=== PATIENT | male | born 1935 | race Caucasian/White ===

== ENCOUNTER → 2017-12-05 | Outpatient (CLI) | payer OTHER, BC | LOC: BHFA 09:00 | PROVIDERS: ATTEND Internal Medicine Interventional Cardiology | DX: R94.31 Abnormal electrocardiogram [ECG] [EKG] (principal); I42.9 Cardiomyopathy, unspecified; I10 Essential (primary) hypertension | CPT/HCPCS: 78452; 93017; A9500; J2785 ==

== ENCOUNTER → 2017-12-19 | Outpatient (CLI) | payer OTHER, BC | LOC: BHFA 13:15 | PROVIDERS: ATTEND Internal Medicine | DX: R09.89 Other specified symptoms and signs involving the circulatory and respiratory systems (principal); I25.10 Atherosclerotic heart disease of native coronary artery without angina pectoris ==

== ENCOUNTER 2018-01-25 08:54 | Day surgery (SDC) | payer OTHER, BC ==
[2018-01-25] MEDS ORDERED: DIAZEPAM 5 MG TAB PO ONE (08:57)
[2018-01-25] MEDS ORDERED: ASPIRIN EC 325 MG TAB PO ONE ×2 (08:57→09:21)
[2018-01-25] MEDS ORDERED: diphenhydrAMINE 25 MG CAP PO ONE ×2 (08:57→09:21)
[2018-01-25] MEDS ORDERED: NS 1,000 ML IV ONE (08:57)
[2018-01-25] MEDS ORDERED: FAMOTIDINE 20 MG TAB PO ONE (08:57)
--- NOTE | 2018-01-25 09:12 | PDPROPOC ---
Sedation Plan of Care Sedation Plan of Care: vital signs stable, mental status noted, patient educated of risks, benefits, alternatives, patient can tolerate sedation ASA Classification: ASA 2 Planned drugs: fentanyl, midazolam Mallampati Score: Class 2 Mallampati Reference Image: Patient passed 3-3-2 rule?: Yes
--- NOTE | 2018-01-25 09:12 | PDHPUP ---
History & Physical Update H&P update statement: This history and physical update is based on an assessment of the patient which was completed after admission or registration (within 24 hours), but prior to the surgery/procedure. H&P update: H&P reviewed & patient examined, no change in patient's condition since H&P completed
--- NOTE | 2018-01-25 09:19 | CPEKG ---
Heart Rate: 76 RR Interval: 789 P-R Interval: 152 QRSD Interval: 146 QT Interval: 436 QTC Interval: 491 P [place]: 67 QRS [place]: 24 T Wave [place]: 9 EKG Severity - ABNORMAL ECG - EKG Impression: SINUS RHYTHM EKG Impression: RIGHT BUNDLE BRANCH BLOCK EKG Impression: BORDERLINE INFERIOR Q WAVES Electronically Signed By: Aracelis Irvin 25-Jan-2018 11:20:36
[2018-01-25] MEDS ORDERED: FAMOTIDINE 20 MG TAB ONE (09:21)
[2018-01-25] MEDS ORDERED: DIAZEPAM 5 MG TAB ONE (09:21)
[2018-01-25 09:33] LABS: PLATELET COUNT 124 10^3/uL (150-400)
[2018-01-25 09:39] LABS: INR 0.99 (0.83-1.16); PROTIME(PATIENT) 13.3 SEC (12.0-15.0)
[2018-01-25] MEDS ORDERED: LIDOCAINE 1% 300 MG/30 ML SDV ONE (10:19)
[2018-01-25] MEDS ORDERED: IOPAMIDOL (ISOVUE-370) 150 ML BTL IV ONE (10:20)
[2018-01-25] MEDS ORDERED: fentaNYL 100 MCG/2 ML INJ ONE (10:20)
[2018-01-25] MEDS ORDERED: MIDAZOLAM 2 MG/2 ML VIAL ONE (10:20)
[2018-01-25] MEDS ORDERED: VERAPAMIL 5 MG/2 ML VIAL ONE (10:28)
[2018-01-25] MEDS ORDERED: HEPARIN 10,000 UNIT/10 ML MDV (1,000 UNIT/ML) ONE (10:30)
--- NOTE | 2018-01-25 11:07 | PDDXCAT ---
Diagnostic Cath Note - . Date: 01/25/18 Flight/Transport Nurse: Kristopher Indication: other (EKG suggestive of ischemia, Shortness of breath) - Procedure Access: right groin Procedure: left heart catheterization, coronary angiography - Materials Left Heart Cath size: 6F Left Heart Cath materials: standard multipack (JL4, JR4, pigtail) - Findings-Left Heart Catheterization LM: The LM is 6mm in size. It bifurcates into an LAD and circumflex system. No significant flow limiting disease. LAD: The LAD is severely diseased after the first diagonal takeoff. There are two serial 80% obstructions in the LAD distal to the first diagonal takeoff. There is competitive flow consistent with a patent ORDOÑEZ graft. LCX: The circumflex is occluded 100% proximally. There is a distal left to right collateral from the circumflex proper, which is small and unimportant. RCA: RCA is 100% occluded after the conus branch. rSV. Saphenous vein graft to the RCA is widely patent. Retrograde fills to the level of the RV branch. The distal anastimosis to the PDA appears widely patent. 2. SVG to the circumflex OM is widely patent with excellent anastamosis and NABOR III flow. ORDOÑEZ: The ORDOÑEZ graft to the LAD is widely patent with NABOR III flow. EDP: EDP is 17mmHg. LVEF: The EF is 65%. Wall motion: On the LV gram there is normal LV systolic funstion. The EF is 65% . There are minor resting segmental wall motion abnormalities involving the inferior wall. 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 There is no significant gradient on pullback. Complications: None. Estimated blood loss: <50ml Closure method: Angioseal Assessment: Severe [place] vessel coronary disease with widely patent grafts to the RCA, Circ OM, and LAD. Normal LV systolic function. No significant mitral regurgitation or evidence of aortic stenosis. His BNP was elevated and he is short of breath, this is likely because of diastolic dysfunction. Plan: The patient has non-flow limiting coronary disease that should be treated medically to achieve a non-HDL cholesterol of less than 100 mg/dL and platelet therapy with ASA is also recommends specifically a dose of 162 mg per day. His BP also needs to be controlled for a goal systolic pressure of less than 130mmHg. Intervention: None.
[2018-01-25] MEDS ORDERED: ATROPINE SULFATE 1 MG/10 ML SYR IVP PRN (11:51)
[2018-01-25] MEDS ORDERED: NITROGLYCERIN 0.4 MG BTL SL PRN (11:51)
[2018-01-25] MEDS ORDERED: OXYCODONE/APAP 5/325 TAB PO PRN (11:51)
[2018-01-25] MEDS ORDERED: HYDROCODONE/APAP 5/325 TAB PO PRN (11:51)
[2018-01-25] MEDS ORDERED: ONDANSETRON 4 MG/2 ML VIAL IVP PRN (11:51)
== END 2018-01-25 16:05 | disposition home or self-care (01) ==
LOC: FCATH 08:54
PROVIDERS: ATTEND Internal Medicine Cardiovascular Disease
DX: R06.02 Shortness of breath (principal); I25.10 Atherosclerotic heart disease of native coronary artery without angina pectoris; E78.00 Pure hypercholesterolemia, unspecified; I10 Essential (primary) hypertension; G47.33 Obstructive sleep apnea (adult) (pediatric); Z95.1 Presence of aortocoronary bypass graft; Z99.81 Dependence on supplemental oxygen
CPT/HCPCS: C1760; J1644; J2250; J3010; Q9967